=== PATIENT | female | born 1985 | race Two or more races ===

== ENCOUNTER 2017-10-18 11:34 | Outpatient (CLI) | payer MEDICAID ==
[2017-10-18 12:02] VITALS: BP 99/52
[2017-10-18] MEDS ORDERED: PREN1TAB60 PO (12:02)
[2017-10-18] MEDS ORDERED: ACET650S21 PO (12:02)
== END 2017-10-18 12:55 | disposition home or self-care (01) ==
LOC: LDOP 11:34
PROVIDERS: ATTEND Obstetrics & Gynecology Maternal & Fetal Medicine
DX: O26.892 Other specified pregnancy related conditions, second trimester (principal); R10.9 Unspecified abdominal pain; Z3A.21 21 weeks gestation of pregnancy
CPT/HCPCS: 59025; 99211; G0463

== ENCOUNTER 2017-12-21 20:19 | Outpatient (CLI) | payer MEDICAID ==
[~2017-12-21 20:19] MED LIST: ACET650S21 PO; PREN1TAB60 PO
== END 2017-12-21 21:55 | disposition home or self-care (01) ==
LOC: LDOP 20:19
PROVIDERS: ATTEND Obstetrics & Gynecology Maternal & Fetal Medicine
DX: O26.893 Other specified pregnancy related conditions, third trimester (principal); W19.XXXA Unspecified fall, initial encounter; Z3A.00 Weeks of gestation of pregnancy not specified
CPT/HCPCS: 59025; 99211; G0463

== ENCOUNTER 2018-01-30 12:53 | Outpatient (CLI) | payer MEDICAID ==
[~2018-01-30] VITALS: Ht 160 cm; Wt 83.1 kg
[2018-01-30 13:21] VITALS: BP 114/69
== END 2018-01-30 15:11 | disposition home or self-care (01) ==
LOC: LDOP 12:53
PROVIDERS: ATTEND Obstetrics & Gynecology Maternal & Fetal Medicine
DX: O26.893 Other specified pregnancy related conditions, third trimester (principal); R10.9 Unspecified abdominal pain; Z3A.35 35 weeks gestation of pregnancy
CPT/HCPCS: 59025; 99211; G0463

== ENCOUNTER 2018-02-14 05:30 | Inpatient (IN) | payer MEDICAID ==
[~2018-02-14] VITALS: Ht 160 cm; Wt 87.0 kg
[2018-02-14] MEDS ORDERED: NEWBORN KIT ONE (05:43)
[2018-02-14] MEDS ORDERED: LACTATED RINGERS 1,000 ML IV SCH (05:46)
[2018-02-14] MEDS ORDERED: OXYTOCIN 30U/ 0.9% NaCL 500ML 500 ML IV SCH (05:46)
[2018-02-14] MEDS ORDERED: SODIUM CITRATE/CITRIC ACID 30 ML UDC ONE (05:49)
[2018-02-14] MEDS ORDERED: METOCLOPRAMIDE 5 MG/ML, 2ML ONE (05:50)
[2018-02-14] MEDS ORDERED: SODIUM CITRATE/CITRIC ACID 30 ML UDC PO ONE (06:00)
[2018-02-14] MEDS ORDERED: METOCLOPRAMIDE 5 MG/ML, 2ML IV ONE (06:00)
[2018-02-14] MEDS ORDERED: LACTATED RINGERS 1,000 ML IVBOLUS ONE (06:00)
[2018-02-14 06:11] LABS: BASOPHILS # (AUTO) 0.03 x10^3/uL (0-0.1); BASOPHILS % (AUTO) 1 % (0-1); EOSINOPHILS # (AUTO) 0.03 x10^3/uL (0-0.4); EOSINOPHILS % (AUTO) 1 % (1-7); LYMPHOCYTES # (AUTO) 1.53 x10^3/uL (1-3.4); LYMPHOCYTES % (AUTO) 25 % (22-44); MD NO; MEAN CORPUSCULAR HEMOGLOBIN 22.9 pg (27.0-34.8); MEAN CORPUSCULAR HGB CONC 32.7 g/dL (32.4-35.8); MEAN CORPUSCULAR VOLUME 70.3 fL (80-100); MEAN PLATELET VOLUME 9.4 fL (7.4-10.4); MONOCYTES # (AUTO) 0.47 x10^3/uL (0.2-0.8); MONOCYTES % (AUTO) 8 % (2-9); NEUTROPHILS # (AUTO) 4.11 x10^3/uL (1.8-6.8); NEUTROPHILS % (AUTO) 67 % (42-75); PLATELET COUNT 229 x10^3/uL (130-400); RED BLOOD COUNT 3.95 x10^6/uL (3.82-5.3); RED CELL DISTRIBUTION WIDTH 16.6 % (9.6-15.2)
[2018-02-14] MEDS ORDERED: PHENYLEPHRINE 10 MG/ML ONE (07:19)
[2018-02-14] MEDS ORDERED: CEFAZOLIN 1,000 MG ONE (07:19)
[2018-02-14] MEDS ORDERED: FENTANYL PF 100 MCG/2ML ONE (07:19)
[2018-02-14] MEDS ORDERED: EPHEDRINE 50 MG/ML, 1ML ONE (07:19)
[2018-02-14] MEDS ORDERED: OXYTOCIN 10 UNITS/ML, 1ML ONE (07:19)
[2018-02-14] MEDS ORDERED: ONDANSETRON 2MG/ML, 2ML ONE (07:19)
[2018-02-14] MEDS ORDERED: KETOROLAC 30 MG/1 ML ONE (07:19)
[2018-02-14] MEDS ORDERED: DEXAMETHASONE 4 MG/ML, 1ML ONE (07:19)
[2018-02-14] MEDS ORDERED: HYDROmorphone 1 MG/ML, 1ML IV PRN (07:30)
[2018-02-14] MEDS ORDERED: MIDAZOLAM 1 MG/ML, 2ML IV PRN (07:30)
[2018-02-14] MEDS ORDERED: ALBUTEROL SULFATE 2.5 MG/3 ML NPPB PRN (07:30)
[2018-02-14] MEDS ORDERED: OXYcodone 5 MG/5 ML ORAL.SOL UDC PO PRN (07:30)
[2018-02-14] MEDS ORDERED: MEPERIDINE/PF 25MG/0.5ML IVPush PRN (07:30)
[2018-02-14] MEDS ORDERED: hydrALAzine 20 MG/ML, 1ML IV PRN (07:30)
[2018-02-14] MEDS ORDERED: LABETALOL 5MG/ML, 20ML IV PRN (07:30)
[2018-02-14] MEDS ORDERED: EPHEDRINE 50 MG/ML, 1ML IVPush PRN (07:30)
[2018-02-14] MEDS ORDERED: FENTANYL PF 100 MCG/2ML IV PRN (07:30)
[2018-02-14] MEDS ORDERED: HYDROcodone/APAP 7.5-325MG/15ML UDC PO PRN (07:30)
[2018-02-14] MEDS ORDERED: ONDANSETRON 2MG/ML, 2ML IVPush PRN (07:30)
[2018-02-14] MEDS ORDERED: PROMETHAZINE 25 MG/ML, 1ML IV PRN (07:30)
[2018-02-14] MEDS: OXYTOCIN 30U/ 0.9% NaCL 500ML 500 ML IV SCH ×2 (07:40→17:40)
[2018-02-14] MEDS: LACTATED RINGERS 1,000 ML IV SCH ×5 (07:40→23:40)
[2018-02-14] MEDS ORDERED: MEASLES,MUMPS&RUBELLA VACC/PF 0.5 ML SQ-VACC PRN (08:00)
[2018-02-14] MEDS ORDERED: CARBOPROST TROMETHAMINE 250 MCG/ML, 1ML IM PRN (08:00)
[2018-02-14] MEDS ORDERED: ONDANSETRON 2MG/ML, 2ML IV PRN (08:00)
[2018-02-14] MEDS ORDERED: MISOPROSTOL 200 MCG TABLET PR PRN (08:00)
[2018-02-14] MEDS ORDERED: METHYLERGONOVINE 0.2 MG/ML IM PRN (08:00)
[2018-02-14] MEDS ORDERED: SIMETHICONE 80 MG CHEW TAB PO PRN (08:00)
[2018-02-14] MEDS ORDERED: IBUPROFEN 600 MG TABLET PO PRN (08:00)
[2018-02-14] MEDS ORDERED: ACETAMINOPHEN 325 MG TABLET PO PRN (08:00)
[2018-02-14] MEDS ORDERED: morphine SULFATE 10 MG/ML, 1ML IVPush PRN (08:00)
[2018-02-14] MEDS ORDERED: DIPH,PERTUSS(ACELL),TET VAC/PF NC IM-VACC PRN (08:00)
[2018-02-14] MEDS: PRENATAL VIT/IRON/FA 1 EACH TABLET PO SCH (09:00)
[2018-02-14] MEDS ORDERED: OXYTOCIN 30U/ 0.9% NaCL 500ML 500 ML ONE (09:53)
[2018-02-14] MEDS ORDERED: MEPERIDINE/PF 50 MG/ML ONE (10:04)
[2018-02-14] MEDS ORDERED: MEPERIDINE/PF 25MG/0.5ML IVPush ONE (10:30)
[2018-02-14 11:30] VITALS: BP 130/85
[2018-02-14] MEDS: KETOROLAC 30 MG/1 ML IV SCH ×2 (12:55→19:47)
[2018-02-14] MEDS: OXYcodone/APAP 5/325MG TABLET PO PRN ×2 (13:45→18:48)
[2018-02-14] MEDS ORDERED: TERBUTALINE 1 MG/ML, 1ML IV ONE (14:00)
[2018-02-14 16:00] LABS: BASOPHILS # (AUTO) 0.02 x10^3/uL (0-0.1); BASOPHILS % (AUTO) 0 % (0-1); EOSINOPHILS % (AUTO) 0 % (1-7); LYMPHOCYTES # (AUTO) 1.15 x10^3/uL (1-3.4); LYMPHOCYTES % (AUTO) 10 % (22-44); MD NO; MEAN CORPUSCULAR HEMOGLOBIN 23.2 pg (27.0-34.8); MEAN CORPUSCULAR HGB CONC 32.4 g/dL (32.4-35.8); MEAN CORPUSCULAR VOLUME 71.4 fL (80-100); MEAN PLATELET VOLUME 9.4 fL (7.4-10.4); MONOCYTES % (AUTO) 4 % (2-9); NEUTROPHILS % (AUTO) 86 % (42-75); PLATELET COUNT 222 x10^3/uL (130-400); RED BLOOD COUNT 3.42 x10^6/uL (3.82-5.3); RED CELL DISTRIBUTION WIDTH 16.5 % (9.6-15.2)
[2018-02-14 16:30] VITALS: BP 122/82
[2018-02-14 20:50] VITALS: BP 114/76
[2018-02-14] MEDS: OXYcodone IR 5MG TABLET PO PRN (22:54)
[2018-02-15 00:15] VITALS: BP 109/69
[2018-02-15] MEDS: KETOROLAC 30 MG/1 ML IV SCH ×4 (01:48→21:23)
[2018-02-15] MEDS: OXYcodone IR 5MG TABLET PO PRN ×5 (03:33→22:04)
[2018-02-15] MEDS: OXYTOCIN 30U/ 0.9% NaCL 500ML 500 ML IV SCH ×3 (03:40→23:40)
[2018-02-15] MEDS: LACTATED RINGERS 1,000 ML IV SCH ×6 (03:40→23:40)
[2018-02-15 04:30] VITALS: BP 116/58
[2018-02-15] MEDS: DOCUSATE 100 MG CAPSULE PO PRN ×2 (07:26→21:22)
[2018-02-15] MEDS: PRENATAL VIT/IRON/FA 1 EACH TABLET PO SCH (07:26)
[2018-02-15 07:30] VITALS: BP 113/75
[2018-02-15 14:00] VITALS: BP 110/62
[2018-02-15 20:50] VITALS: BP 116/72
[2018-02-16] MEDS: OXYcodone IR 5MG TABLET PO PRN ×3 (03:05→16:55)
[2018-02-16] MEDS: KETOROLAC 30 MG/1 ML IV SCH ×2 (03:05→08:39)
[2018-02-16] MEDS: LACTATED RINGERS 1,000 ML IV SCH ×2 (07:40→09:40)
[2018-02-16] MEDS: PRENATAL VIT/IRON/FA 1 EACH TABLET PO SCH (08:04)
[2018-02-16] MEDS: DOCUSATE 100 MG CAPSULE PO PRN (08:04)
[2018-02-16 08:05] VITALS: BP 112/70
[2018-02-16] MEDS ORDERED: KETOROLAC 30 MG/1 ML ONE (08:37)
[2018-02-16] MEDS: OXYTOCIN 30U/ 0.9% NaCL 500ML 500 ML IV SCH (09:40)
[2018-02-16] MEDS: OXYcodone/APAP 5/325MG TABLET PO PRN (12:38)
[2018-02-16] MEDS ORDERED: IBUP-1222 PO (13:22)
[2018-02-16] MEDS ORDERED: OXYC-302 PO (13:22)
== END 2018-02-16 17:00 | disposition home or self-care (01) | DRG 766 ==
LOC: LDIP 05:30 → 2NW 11:04
PROVIDERS: ADMIT Obstetrics & Gynecology Maternal & Fetal Medicine; ATTEND Obstetrics & Gynecology Maternal & Fetal Medicine
PROC: 10D00Z1 Extraction of Products of Conception, Low, Open Approach (ICD-10-PCS; principal; 2018-02-14)
PROC: 0UB70ZZ Excision of Bilateral Fallopian Tubes, Open Approach (ICD-10-PCS; 2018-02-14)
DX: O30.043 Twin pregnancy, dichorionic/diamniotic, third trimester (principal); Z37.2 Twins, both liveborn; O99.02 Anemia complicating childbirth; D50.9 Iron deficiency anemia, unspecified; Z30.2 Encounter for sterilization; Z3A.37 37 weeks gestation of pregnancy
CPT/HCPCS: 36415; 85025; 86850; 86900; 86923; 88302; 88307; J0690; J1100; J1885; J2175; J2405; J3010; J2370; J2590; J2765; J7120